=== PATIENT | female | born 1970 | race African-American/Black ===

== ENCOUNTER 2020-12-07 19:00 | Observation (INO) ==
[2020-12-07 19:22] VITALS: BMI 30.4
[2020-12-07] MEDS ORDERED: MORPHINE SULFATE INJ 2 MG INJ IVP ONE (21:54)
[2020-12-07] MEDS ORDERED: NS 1000 ML 1,000 ML IV ONE (21:54)
[2020-12-07] MEDS ORDERED: ZOFRAN INJ 4 MG VIAL IVP ONE (21:54)
[2020-12-07] MEDS ORDERED: ZOFRAN INJ 4 MG VIAL ONE (22:00)
[2020-12-07] MEDS ORDERED: MORPHINE SULFATE INJ 2 MG INJ ONE (22:00)
[2020-12-07] MEDS ORDERED: NS 1000 ML 1,000 ML ONE (22:01)
--- NOTE | 2020-12-07 22:06 | ED.ABDFE ---
HPI Time Seen Time Seen by Provider: 12/07/20 21:41 PCP Primary Care Physician: KIRBY MCCLOUD HPI Comment HPI Comment: A 50 y/o female presenting with shannon-umbilical and LLQ abdominal pain x 5 days. It mostly worsens with meals. She was nauseated but has not vomited. She had an x-ray yesterday and was presumed to have Diverticulitis. Based on this, she was started on Cipro, Flagyl, Bentyl and Zofran. She states these are not helping. She relates a hx. of Diverticulitis in 2017. Complaint Chief Complaint:: PT STATES SHE IS HURTING IN HER ABDOMEN. STATES IT HAS BEEN GOING ON SINCE SATURDAY. STATES SHE WAS TOLD SHE HAD DIVERTICULITIS. STATES RYAN FIGUEROA GAVE HER SEVERAL MEDICATIONS THAT ARE NOT HELPING. PT STATES HER PCP TOLD HER TO COME TO THE ED TO BE CHECKED. Self Treatment fo Chief Complaint: FLAGYL, CIPRO, PROTONIX, DICYCLOMINE, AND ZOFRAN COVID-19 Coronavirus risk:travel/contact w/high risk person: No Has patient experienced Coronavirus symptoms: No Reviewed Nurses Notes Review: Yes Source History Provided: Patient Mode of arrival Mode of Arrival: Ambulatory Timing Onset of Chief Complaint: 12/07/20 Duration Since Onset: Constant How lon Duration: Days Location Location: LLQ Severity Severity: Moderate Quality Quality: Cramping and Sharp Context History of: Abdominal surgery Modifying factors Worsening Factors: Food Associated signs and symptoms Associated Signs and Symptoms: Nausea PMH PMH Past Medical History: Yes Past Medical History Comment: DIVERTICULITIS Past Surgical History: Yes Surgical History: Hysterectomy and Other Past Surgical History Comment: SINUS SURGERY RIGHT ANKLE LEFT FOOT X2 UPPER/LOWER HERNIA REPAIR Family History History of Family Medical Conditions: No Social History Does patient currently use any type of tobacco product: No Have you used tobacco products in the last 12 months: No Type of Tobacco Use: None Does any household member use tobacco: No Alcohol Use: None Do you use any recreational Drugs:: No Lives Where: Home Travel Risk Coronavirus risk:travel/contact w/high risk person: No Has patient experienced Coronavirus symptoms: No Infectious screening Have you traveled outside the country in the last 6 months?: No Isolation: Standard ROS Review of Systems Constitutional: No Symptoms Reported Eyes: No Symptoms Reported ENTM: No Symptoms Reported Respiratoy: No Symptoms Reported Cardiovascular: No Symptoms Reported Gastrointestinal/Abdominal: Abdominal Pain Genitourinary: No Symptoms Reported Neurological: No Symptoms Reported Musculoskeletal: No Symptoms Reported Integumentary: No Symptoms Reported Hematologic/Lymphatic: No Symptoms Reported Endocrine: No Symptoms Reported Psychiatric: No Symptoms Reported PE Vital Signs Vitals: Temperature 98.4 F Pulse Rate [Apical] 81 Pulse Rate 92 Respiratory Rate 18 Blood Pressure [Right Arm] 135/76 Blood Pressure 130/76 O2 Sat by Pulse Oximetry 98 General Limitations: No Limitations General Appearance: Alert and In No Apparent Distress Head Head Exam: Normal Inspection, Atraumatic and Normocephalic Eyes Eye exam: Normal Appearance and EOMI ENT ENT Exam: Normal Exam, Normal Oropharynx, Normal External Ear Exam and Mucous Membranes Moist Neck Neck Exam: Normal Inspection, Full ROM and Trachea Midline Chest Chest Inspection: Normal Inspection and Symmetric Chest Wall Rise Respiratory Respiratory Exam: Normal Lung Sounds Bilat Cardiovascular Cardiovascular Exam: Regular Rate, Normal Rhythm, Normal Heart Sounds, +S1 and +S2 Abdominal Exam Abdominal Exam: Normal Inspection, Normal Bowel Sounds, Soft and Tenderness; negative Distention, Guarding, Rebound, Rigidity, Dimnished Bowel Sounds, Hyperactive Bowel Sounds, Hypoactive Bowel Sounds, Organomegaly, Trauma, Incision, Ascites, Mass, Bruit, Pulsatile Mass and Hernia Abdominal Tenderness: LLQ Rectal Rectal Exam: Deferred Back Back Exam: Normal Inspection Extremeties Extremities Exam: Normal Inspection External Exam: Female: Deferred Neurologic Neurological Exam: Alert and Oriented X3 Psychiatric Psychiatric Exam: Normal Affect and Normal Mood Skin Skin Exam: Intact and Normal Color COURSE Treatment Treatment: Pt. was informed of CT Scan findings and recommended plan of tx. to admit and tx. as failed outpt. therapy for diverticulitis. She agreed to admission. I next called plant operator control room operator provider, Dr. PAT, and discussed presentation and findings with her. Dr. Pat agreed to in-house placement. Admit orders were written. Reevaluation 1st: Improved Education/Counseling Education/Counseling: Patient, Education and Counseling Educated On: Treatment, Diagnosis, Prognosis and Needs for Follow Up ROR Labs Reviewed Result Diagrams: 12/07/20 22:05 12/07/20 22:05 Laboratory: WBC 11.7 X10^3/uL (3.6-10.0) H 12/07/20 22:05 RBC 4.50 X10^6/uL (3.5-5.4) 12/07/20 22:05 Hgb 12.6 g/dL (12.0-16.0) 12/07/20 22:05 Hct 37.5 % (36.0-47.0) 12/07/20 22:05 MCV 83.3 fL (80.0-100.0) 12/07/20 22:05 MCH 27.9 pg (27.0-34.0) 12/07/20 22:05 MCHC 33.5 g/dL (33.0-35.0) 12/07/20 22:05 RDW 14.0 % (11.6-16.5) 12/07/20 22:05 Plt Count 299 X10^3/uL (150.0-450.0) 12/07/20 22:05 MPV 7.6 fL (7.4-11.0) 12/07/20 22:05 Neut % (Auto) 78.0 % (42.0-75.0) H 12/07/20 22:05 Lymph % (Auto) 15.3 % (21.0-51.0) L 12/07/20 22:05 [place] % (Auto) 5.5 % (0.0-13.0) 12/07/20 22:05 Eos % (Auto) 0.9 % (0.9-2.9) 12/07/20 22:05 Baso % (Auto) 0.3 % (0.2-1.0) 12/07/20 22:05 Neut # (Auto) 9.1 x10^3/uL (2.2-4.8) H 12/07/20 22:05 Lymph # (Auto) 1.8 X10^3/uL (1.3-2.9) 12/07/20 22:05 [place] # (Auto) 0.6 x10^3/uL (0.3-0.8) 12/07/20 22:05 Eos # (Auto) 0.1 x10^3/uL (0.0-0.2) 12/07/20 22:05 Baso # (Auto) 0.0 X10^3/uL (0.0-0.1) 12/07/20 22:05 Absolute Nucleated RBC 0.0 /100WBC 12/07/20 22:05 Sodium 143 mmol/L (136-145) 12/07/20 22:05 Corrected Sodium 143 mmol/L (136-145) 12/07/20 22:05 Potassium 3.4 mmol/L (3.5-5.1) L 12/07/20 22:05 Chloride 106 mmol/L (98-107) 12/07/20 22:05 Carbon Dioxide 26.3 mmol/L (21-32) 12/07/20 22:05 BUN 9 mg/dL (7-18) 12/07/20 22:05 Creatinine 1.69 mg/dL (0.55-1.02) H 12/07/20 22:05 Est GFR (MDRD) Af Amer 42 (>60) L 12/07/20 22:05 Est GFR (MDRD) Non-Af 34 (>60) L 12/07/20 22:05 Glucose 111 mg/dL (65-99) H 12/07/20 22:05 Calcium 9.0 mg/dL (8.5-10.1) 12/07/20 22:05 Specimen Type Clean catch urine 12/07/20 21:57 Urine Color Yellow (YELLOW) 12/07/20 21:57 Urine Appearance Hazy (CLEAR) 12/07/20 21:57 Urine pH 5.0 (5.0 - 8.0) 12/07/20 21:57 Ur Specific [place] 1.020 (1.000-1.030) 12/07/20 21:57 Urine Protein 1+ (NEGATIVE) 12/07/20 21:57 Urine Glucose (UA) Negative (NEGATIVE) 12/07/20 21:57 Urine Ketones Negative (NEGATIVE) 12/07/20 21:57 Urine Occult Blood 1+ (NEGATIVE) 12/07/20 21:57 Urine Nitrite Negative (NEGATIVE) 12/07/20 21:57 Urine Bilirubin Negative (NEGATIVE) 12/07/20 21:57 Urine Urobilinogen Normal (NORMAL) 12/07/20 21:57 Ur Leukocyte Esterase 2+ (NEGATIVE) 12/07/20 21:57 Urine RBC 0-2 /HPF (0-3) 12/07/20 21:57 Urine WBC 3-5 /HPF (0-5) 12/07/20 21:57 Ur Squamous Epith Cells Moderate /HPF (NEGATIVE) 12/07/20 21:57 Urine Bacteria Trace /HPF (NEGATIVE) 12/07/20 21:57 Urine Mucus Few /HPF (NEGATIVE) 12/07/20 21:57 Ur Culture Indicated? No/not indicated 12/07/20 21:57 Opioid Opioid Risk Tool Age (Lyle box if 16-45): No Total: 0 Total Score Risk Category: Low Risk Copyright: [facility] predicting aberrant behaviors Diagnosis Discharge Problem: Cecal diverticulitis Instructions Forms: Precautions for COVID19 Patient Portal Social Distancing ADDITIONAL NOTES Additional Notes Additional Notes: HISTORY PT C/O ABD PAIN SINCE SATURDAY STUDY ABDOMEN/PELVIS WITH CON COMPARISON 06/10/2019 TECHNIQUE Multiple axial images of the abdomen and pelvis were obtained from the lung bases to the pubic symphysis after the administration of IV contrast. Dose reduction techniques including Automated Exposure Control (AEC) and adjustment of mA and kV were utilized. FINDINGS The visualized portions of the lung bases are unremarkable . The liver, spleen, pancreas, kidneys, and adrenal glands are unremarkable in their CT appearance. The gallbladder is unremarkable in its CT appearance . No significant mesenteric lymphadenopathy or stranding can be observed. No free fluid or free air is seen within the abdomen. Normal appendix right lower quadrant. No bowel wall thickening or bowel dilatation is present. There are scattered diverticuli arising throughout the colon. There is focal pericolonic inflammation and mild wall thickening involving the cecum consistent with acute diverticulitis.. The urinary bladder is grossly unremarkable. The uterus has been removed. The bony structures are grossly intact. IMPRESSION Uncomplicated acute cecal diverticulitis. Electronically signed by: Ld Milligan (Dec 08, 2020 02:15:24)
[2020-12-07 22:18] LABS: BASOPHILS % (AUTO) 0.3 % (0.2-1.0); EOSINOPHILS # (AUTO) 0.1 x10^3/uL (0.0-0.2); EOSINOPHILS % (AUTO) 0.9 % (0.9-2.9); HEMATOCRIT 37.5 % (36.0-47.0); HEMOGLOBIN 12.6 g/dL (12.0-16.0); LYMPHOCYTES # (AUTO) 1.8 X10^3/uL (1.3-2.9); LYMPHOCYTES % (AUTO) 15.3 % (21.0-51.0); MEAN CORPUSCULAR HEMOGLOBIN 27.9 pg (27.0-34.0); MEAN CORPUSCULAR HGB CONC 33.5 g/dL (33.0-35.0); MEAN CORPUSCULAR VOLUME 83.3 fL (80.0-100.0); MEAN PLATELET VOLUME 7.6 fL (7.4-11.0); MONOCYTES # (AUTO) 0.6 x10^3/uL (0.3-0.8); MONOCYTES % (AUTO) 5.5 % (0.0-13.0); NEUTROPHILS # (AUTO) 9.1 x10^3/uL (2.2-4.8); PLATELET COUNT 299 X10^3/uL (150.0-450.0); WHITE BLOOD COUNT 11.7 X10^3/uL (3.6-10.0)
[2020-12-07 22:19] LABS: BILIRUBIN,URINE NEGATIVE (NEGATIVE); BLOOD/HEMOGLOBIN,URINE 1+ (NEGATIVE); GLUCOSE, URINE NEGATIVE (NEGATIVE); KETONES,URINE NEGATIVE (NEGATIVE); LEUKOCYTE ESTERASE ,URINE 2+ (NEGATIVE); NITRITES,URINE NEGATIVE (NEGATIVE); PROTEIN,URINE 1+ (NEGATIVE); UROBILINOGEN,URINE NORMAL (NORMAL)
[2020-12-07 22:22] LABS: CARBON DIOXIDE 26.3 mmol/L (21-32); CREATININE 1.69 mg/dL (0.55-1.02)
[2020-12-07 22:27] LABS: APPEARANCE,URINE HAZY (CLEAR); COLOR,URINE YELLOW (YELLOW)
[2020-12-07 22:28] LABS: BACTERIA,URINE TRACE /HPF (NEGATIVE); MUCUS,URINE FEW /HPF (NEGATIVE); RBC,URINE 0-2 /HPF (0-3); SQUAMOUS EPITHELIAL CELL,UR MODERATE /HPF (NEGATIVE)
--- NOTE | 2020-12-08 02:17 | CT ---
HISTORYPT C/O ABD PAIN SINCE FRIDAYSTUDYABDOMEN/PELVIS WITH [id number]/29/2020TECHNIQUEMultiple axial images of the abdomen and pelvis were obtained from the lung bases to the pubic symphysis after the administration of IV contrast. Dose reduction techniques including Automated Exposure Control (AEC) and adjustment of mA and kV were utilized.FINDINGSThe visualized portions of the lung bases are unremarkable . The liver, spleen, pancreas, kidneys, and adrenal glands are unremarkable in their CT appearance. The gallbladder is unremarkable in its CT appearance . No significant mesenteric lymphadenopathy or stranding can be observed. No free fluid or free air is seen within the abdomen. Normal appendix right lower quadrant. No bowel wall thickening or bowel dilatation is present. There are scattered diverticuli arising throughout the colon. There is focal pericolonic inflammation and mild wall thickening involving the cecum consistent with acute diverticulitis.. The urinary bladder is grossly unremarkable. The uterus has been removed. The bony structures are grossly intact.IMPRESSIONUncomplicated acute cecal diverticulitis.Electronically signed by: Ld Milligan (Dec 08, 2020 02:15:24)
[2020-12-08] MEDS ORDERED: MORPHINE SULFATE INJ 2 MG INJ ONE (02:57)
[2020-12-08] MEDS ORDERED: MORPHINE SULFATE INJ 2 MG INJ IVP ONE (02:57)
[2020-12-08] MEDS: D5 1/2 NS 1000 ML 1,000 ML IV SCH ×3 (04:45→19:30)
[2020-12-08] MEDS: FLAGYL IV PREMIX 500 MG BAG 500 MG/100 ML BAG IV SCH ×3 (06:04→21:38)
[2020-12-08 06:09] LABS: BASOPHILS # (AUTO) 0.1 X10^3/uL (0.0-0.1); BASOPHILS % (AUTO) 0.7 % (0.2-1.0); EOSINOPHILS # (AUTO) 0.1 x10^3/uL (0.0-0.2); EOSINOPHILS % (AUTO) 1.4 % (0.9-2.9); HEMATOCRIT 33.6 % (36.0-47.0); HEMOGLOBIN 11.4 g/dL (12.0-16.0); LYMPHOCYTES # (AUTO) 1.5 X10^3/uL (1.3-2.9); LYMPHOCYTES % (AUTO) 19.7 % (21.0-51.0); MEAN CORPUSCULAR HEMOGLOBIN 28.1 pg (27.0-34.0); MEAN CORPUSCULAR HGB CONC 33.9 g/dL (33.0-35.0); MEAN PLATELET VOLUME 7.8 fL (7.4-11.0); MONOCYTES # (AUTO) 0.5 x10^3/uL (0.3-0.8); MONOCYTES % (AUTO) 6.7 % (0.0-13.0); NEUTROPHILS # (AUTO) 5.6 x10^3/uL (2.2-4.8); NEUTROPHILS % (AUTO) 71.5 % (42.0-75.0); PLATELET COUNT 250 X10^3/uL (150.0-450.0); RED BLOOD COUNT 4.05 X10^6/uL (3.5-5.4); RED CELL DISTRIBUTION WIDTH 13.9 % (11.6-16.5); WHITE BLOOD COUNT 7.8 X10^3/uL (3.6-10.0)
[2020-12-08 06:40] LABS: CALCIUM 8.5 mg/dL (8.5-10.1); CREATININE 1.49 mg/dL (0.55-1.02)
[2020-12-08] MEDS ORDERED: ALLEGRA ONE (08:07)
[2020-12-08] MEDS ORDERED: LR 1000 ML IV 1,000 ML IV ONE (09:30)
[2020-12-08] MEDS: CIPRO IV 200 MG PREMIX* 200 MG/100 ML BAG IV SCH ×2 (09:44→21:37)
[2020-12-08] MEDS: ALLEGRA PO SCH (09:49)
[2020-12-08] MEDS: PROTONIX TAB 40 MG PO SCH ×2 (09:49→21:37)
[2020-12-08] MEDS: SINGULAIR TAB 10 MG PO SCH (09:49)
[2020-12-08] MEDS: DITROPAN TAB 5 MG PO SCH ×2 (09:50→21:37)
[2020-12-08] MEDS: ZOFRAN INJ 4 MG VIAL IVP SCH ×3 (09:50→21:38)
[2020-12-08] MEDS: MORPHINE SULFATE INJ 2 MG INJ IVP PRN ×3 (10:58→22:02)
[2020-12-09] MEDS: ZOFRAN INJ 4 MG VIAL IVP SCH ×2 (03:40→09:52)
[2020-12-09 06:12] LABS: BASOPHILS % (AUTO) 0.5 % (0.2-1.0); EOSINOPHILS # (AUTO) 0.2 x10^3/uL (0.0-0.2); EOSINOPHILS % (AUTO) 3.8 % (0.9-2.9); HEMATOCRIT 32.8 % (36.0-47.0); HEMOGLOBIN 11.1 g/dL (12.0-16.0); LYMPHOCYTES # (AUTO) 1.5 X10^3/uL (1.3-2.9); LYMPHOCYTES % (AUTO) 24.6 % (21.0-51.0); MEAN CORPUSCULAR HEMOGLOBIN 27.9 pg (27.0-34.0); MEAN CORPUSCULAR HGB CONC 33.9 g/dL (33.0-35.0); MEAN CORPUSCULAR VOLUME 82.5 fL (80.0-100.0); MEAN PLATELET VOLUME 7.6 fL (7.4-11.0); MONOCYTES # (AUTO) 0.6 x10^3/uL (0.3-0.8); MONOCYTES % (AUTO) 9.9 % (0.0-13.0); NEUTROPHILS # (AUTO) 3.6 x10^3/uL (2.2-4.8); NEUTROPHILS % (AUTO) 61.2 % (42.0-75.0); PLATELET COUNT 248 X10^3/uL (150.0-450.0); RED BLOOD COUNT 3.97 X10^6/uL (3.5-5.4); WHITE BLOOD COUNT 5.9 X10^3/uL (3.6-10.0)
[2020-12-09 06:26] LABS: CALCIUM 8.7 mg/dL (8.5-10.1); CARBON DIOXIDE 28.1 mmol/L (21-32); COR CA(FOR HYPOALB) 9.5 mg/dL (8.5-10.1); CREATININE 1.24 mg/dL (0.55-1.02); TOTAL PROTEIN 6.4 g/dL (6.4-8.2)
[2020-12-09] MEDS: FLAGYL IV PREMIX 500 MG BAG 500 MG/100 ML BAG IV SCH (06:27)
[2020-12-09] MEDS: D5 1/2 NS 1000 ML 1,000 ML IV SCH ×2 (08:11→11:15)
[2020-12-09] MEDS ORDERED: ALLEGRA ONE (08:52)
[2020-12-09] MEDS: ALLEGRA PO SCH (09:52)
[2020-12-09] MEDS: SINGULAIR TAB 10 MG PO SCH (09:53)
[2020-12-09] MEDS: CIPRO IV 200 MG PREMIX* 200 MG/100 ML BAG IV SCH (09:53)
[2020-12-09] MEDS: DITROPAN TAB 5 MG PO SCH (09:53)
[2020-12-09] MEDS: PROTONIX TAB 40 MG PO SCH (09:53)
[2020-12-09 11:51] VITALS: BP 128/68
== END 2020-12-09 13:45 | disposition home or self-care (01) ==
LOC: MED/SURG 19:04 → ER 19:04 → MED/SURG 12-08 04:25
PROVIDERS: ADMIT Obstetrics & Gynecology Obstetrics; ATTEND Obstetrics & Gynecology Obstetrics
DX: Z20.822 Contact with and (suspected) exposure to COVID-19; R94.4 Abnormal results of kidney function studies; K57.32 Diverticulitis of large intestine without perforation or abscess without bleeding; N32.81 Overactive bladder